=== PATIENT | female | born 1950 | race Two or more races ===

== ENCOUNTER 2017-04-26 09:59 | Emergency (ER) | payer MEDICARE ==
--- NOTE | 2017-04-26 12:15 | ER Document Report ---
ED Medical Screen (RME) - General Chief Complaint: Dizziness Stated Complaint: DIZZINESS Time Seen by Provider: 04/26/17 12:10 Mode of Arrival: Ambulatory Information source: Patient TRAVEL OUTSIDE OF THE [place] IN LAST 30 DAYS: No - HPI Onset: Other - SEVERAL DAYS Onset/Duration: Gradual Quality of pain: No pain Associated Symptoms: Dizzy/lightheaded, Headache - R. TEMPORAL, Shortness of breath - INFREQUENT, Other - DENIES VERTIGO. denies: Chest pain, Fever, Nausea , Vomiting, Weakness Exacerbated by: Other - EYES CLOSED Relieved by: Denies Similar symptoms previously: No Recently seen / treated by doctor: No - Related Data Smoking: Non-smoker Frequency of alcohol use: None Drug Abuse: None Allergies/Adverse Reactions: No Known Allergies Allergy (Verified 04/26/17 09:59) Past Medical History - General Information source: Patient - Social History Cigarette use (# per day): No Frequency of alcohol use: Rare Drug Abuse: None Lives with: Other - VISITING, FROM [place]. Family history: Reviewed & Not Pertinent - Past Medical History Cardiac Medical History: Reports: None Denies: Hx Atrial Fibrillation Pulmonary Medical History: Reports: None EENT Medical History: Reports: None Neurological Medical History: Reports: None Endocrine Medical History: Reports: None Renal/ Medical History: Reports: None Malignancy Medical History: Reports: None GI Medical History: Reports: None Musculoskeltal Medical History: Reports None Psychiatric Medical History: Reports: None Past Surgical History: Reports: Hx Adenoidectomy, Hx Tonsillectomy Review of Systems - Review of Systems Constitutional: No symptoms reported EENT: No symptoms reported Cardiovascular: No symptoms reported Respiratory: See HPI Gastrointestinal: No symptoms reported Female Genitourinary: Post menopausal Musculoskeletal: No symptoms reported Skin: No symptoms reported Neurological/Psychological: See HPI Physical Exam - Vital signs Vitals: Temp Pulse Resp BP Pulse Ox 98.2 F 72 18 133/72 H 98 04/26/17 10:28 04/26/17 10:28 04/26/17 10:28 04/26/17 10:28 04/26/17 10:28 Interpretation: Normal. No: Hypertensive, Tachycardic, Tachypneic - General General appearance: Appears well, Alert In distress: None - HEENT Head: Normocephalic Eyes: Normal Conjunctiva: Normal Ears: Normal Nasal: Normal Mouth/Lips: Normal Mucous membranes: Normal Pharynx: Normal Neck: Normal - Respiratory Respiratory status: No respiratory distress Breath sounds: Normal - Cardiovascular Rhythm: Regular Heart sounds: Normal auscultation Murmur: No - Extremities General upper extremity: Normal inspection General lower extremity: Normal inspection - Neurological Neuro grossly intact: Yes Cognition: Normal Orientation: AAOx4 - Psychological Associated symptoms: Normal affect, Normal mood - Skin Skin Temperature: Warm Skin Moisture: Dry Skin Color: Normal Skin Turgor: Elastic Course - Vital Signs Vital signs: Temp Pulse Resp BP Pulse Ox 98.2 F 72 18 133/72 H 98 04/26/17 10:28 04/26/17 10:28 04/26/17 10:28 04/26/17 10:28 04/26/17 10:28
--- NOTE | 2017-04-26 13:00 | RADIOLOGY REPORT (SQ) ---
EXAM DESCRIPTION: CT HEAD WITHOUT COMPLETED DATE/TIME: 04/26/2017 12:51 pm REASON FOR STUDY: DIZZINESS, R. TEMPORAL HEADACHE COMPARISON: None. TECHNIQUE: Axial images acquired through the brain without intravenous contrast. Images reviewed wi th bone, brain and subdural windows. Images stored on PACS. All CT scanners at this facility use dose modulation, iterative reconstruction, and/or weight based d osing when appropriate to reduce radiation dose to as low as reasonably achievable (ALARA). [facility]: Dose Right [facility]: CareDose [facility]: Dose Right [facility]: Teradose 4D [facility]: Smart IR Diagnostyx RADIATION DOSE: CT Rad equipment meets quality standard of care and radiation dose reduction techniq ues were employed. CTDIvol: 64.6 mGy. DLP: 1163 mGy-cm. mGy. LIMITATIONS: None. FINDINGS: VENTRICLES: Normal size and contour. CEREBRUM: No masses. No hemorrhage. No midline shift. No evidence for acute infarction. Normal gra y/white matter differentiation. No areas of low density in the white matter. CEREBELLUM: No masses. No hemorrhage. No alteration of density. No evidence for acute infarction. EXTRAAXIAL SPACES: No fluid collections. No masses. ORBITS AND GLOBE: No intra- or extraconal masses. Normal contour of globe without masses. CALVARIUM: No fracture. PARANASAL SINUSES: No fluid or mucosal thickening. SOFT TISSUES: No mass or hematoma. OTHER: No other significant finding. IMPRESSION: NORMAL BRAIN CT WITHOUT CONTRAST. EVIDENCE OF ACUTE STROKE: NO. COMMENT: Quality ID # [id number]: Final reports with documentation of one or more dose reduction techniques (e.g., Automated exposure control, adjustment of the mA and/or kV according to patient size, use of iterative reconstruction technique) TECHNICAL DOCUMENTATION: JOB ID: [id number] [facility]- All Rights Reserved
--- NOTE | 2017-04-26 13:01 | RADIOLOGY REPORT (SQ) ---
EXAM DESCRIPTION: CHEST PA/LAT COMPLETED DATE/TIME: 04/26/2017 12:48 pm REASON FOR STUDY: DYSPNEA COMPARISON: None. EXAM PARAMETERS: NUMBER OF VIEWS: two views TECHNIQUE: Digital Frontal and Lateral radiographic views of the chest acquired. RADIATION DOSE: NA LIMITATIONS: none FINDINGS: LUNGS AND PLEURA: No opacities, masses or pneumothorax. No pleural effusion. MEDIASTINUM AND HILAR STRUCTURES: No masses or contour abnormalities. HEART AND VASCULAR STRUCTURES: Heart normal size. No evidence for failure. BONES: No acute findings. HARDWARE: None in the chest. OTHER: No other significant finding. IMPRESSION: NO SIGNIFICANT RADIOGRAPHIC FINDING IN THE CHEST. TECHNICAL DOCUMENTATION: JOB ID: [id number] [employer]- All Rights Reserved
[2017-04-26 13:11] LABS: ABSOLUTE EOSINOPHILS # (AUTO) 0.1 10^3/uL (0.0-0.6); ABSOLUTE LYMPHOCYTES (AUTO) 2.4 10^3/uL (0.5-4.7); ABSOLUTE MONOCYTES (AUTO) 0.5 10^3/uL (0.1-1.4); ABSOLUTE NEUT (AUTO) 3.8 10^3/uL (1.7-8.2); BASOPHILS % (AUTO) 0.5 % (0-2); EOSINOPHILS % (AUTO) 1.7 % (0-6); HEMATOCRIT 45.7 % (36.0-47.0); HEMOGLOBIN 15.6 g/dL (12.0-15.5); LYMPHOCYTES % (AUTO) 35.5 % (13-45); MEAN CORPUSCULAR HEMOGLOBIN 32.1 pg (27.0-33.4); MEAN CORPUSCULAR HGB CONC 34.2 g/dL (32.0-36.0); MEAN CORPUSCULAR VOLUME 94 fl (80-97); MONOCYTES % (AUTO) 6.9 % (3-13); PLATELET COUNT 318 10^3/uL (150-450); RED BLOOD COUNT 4.86 10^6/uL (3.72-5.28); RED CELL DISTRIBUTION WIDTH 12.7 % (11.5-14.0); SEGMENTED NEUTROPHILS % (AUTO) 55.4 % (42-78); TOTAL CELLS COUNTED % (AUTO) 100 %; WHITE BLOOD COUNT 6.8 10^3/uL (4.0-10.5)
[2017-04-26 13:30] LABS: ALANINE AMINOTRANSFERASE 27 U/L (9-52); ALBUMIN 4.5 g/dL (3.5-5.0); ALKALINE PHOSPHATASE 56 U/L (38-126); ANION GAP 10 (5-19); ASPARTATE AMINO TRANSFERASE 22 U/L (14-36); BILIRUBIN,DIRECT 0.4 mg/dL (0.0-0.4); BILIRUBIN,TOTAL 0.4 mg/dL (0.2-1.3); BLOOD UREA NITROGEN 11 mg/dL (7-20); CALCIUM 9.8 mg/dL (8.4-10.2); CARBON DIOXIDE 30 mmol/L (22-30); CHLORIDE 104 mmol/L (98-107); GLUCOSE 113 mg/dL (75-110); POTASSIUM 4.3 mmol/L (3.6-5.0); SODIUM 143.7 mmol/L (137-145); TOTAL PROTEIN 7.6 g/dL (6.3-8.2)
[2017-04-26 13:55] LABS: ERYTHROCYTE SEDIMENTATION RATE 21 mm/hr (0-30)
--- NOTE | 2017-04-26 14:32 | ER Document Report ---
ED Dizziness/Weakness - General Mode of Arrival: Ambulatory Information source: Patient TRAVEL OUTSIDE OF THE [place] IN LAST 30 DAYS: No <BEN TREVIÑO - Last Filed: 04/26/17 14:43> <SHERON LOPEZ - Last Filed: 04/26/17 23:37> - General Chief Complaint: Dizziness Stated Complaint: DIZZINESS Time Seen by Provider: 04/26/17 12:10 Notes: Patient is a 66-year-old female who is visiting here from [place] (airplane) that presents to the emergency department today with complaints of dizziness for the last four days. Patient states "this is not like vertigo, things are not spinning". Patient describes her dizziness as "floating, underwater, and fuzziness". Patient states that her dizziness is exacerbated with standing up and certain positions. Patient also mentions that she feels like she "cannot get a full breath". Patient states that she has not had any syncopal episodes however she feels like she is near syncope at times. Patient mentions that she has had right shoulder and right temporal pain as well. Patient denies any head trauma. Patient denies any nasal congestion, seeing spots, feeling more off balance than baseline, weakness, blurry vision, speech, or focal neurological deficits. (BEN TREVIÑO) - Related Data Allergies/Adverse Reactions: No Known Allergies Allergy (Verified 04/26/17 09:59) Past Medical History - General Information source: Patient - Social History Smoking Status: Never Smoker Cigarette use (# per day): No Chew tobacco use (# tins/day): No Frequency of alcohol use: Rare Drug Abuse: None Lives with: Family, Other - VISITING, FROM [place]. 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 Renal/ Medical History: Denies: Hx Peritoneal Dialysis Past Surgical History: Reports: Hx Adenoidectomy, Hx Tonsillectomy <BEN TREVIÑO - Last Filed: 04/26/17 14:43> Review of Systems - Review of Systems Constitutional: No symptoms reported EENT: denies: Blurred vision, Nose congestion Cardiovascular: See HPI, Dizziness, Other - near-syncope Respiratory: No symptoms reported Gastrointestinal: No symptoms reported Genitourinary: No symptoms reported Female Genitourinary: No symptoms reported Musculoskeletal: See HPI, Other - right shoulder pain, right sided temporal pain Skin: No symptoms reported Hematologic/Lymphatic: No symptoms reported Neurological/Psychological: denies: Weakness, Headaches, Speech impairment, Numbness -: Yes All other systems reviewed and negative <BEN TREVIÑO - Last Filed: 04/26/17 14:43> Physical Exam <BEN TREVIÑO - Last Filed: 04/26/17 14:43> <SHERON LOPEZ - Last Filed: 04/26/17 23:37> - Vital signs Vitals: Temp Pulse Resp BP Pulse Ox 98.2 F 72 18 133/72 H 98 04/26/17 10:28 04/26/17 10:28 04/26/17 10:28 04/26/17 10:28 04/26/17 10:28 - Notes Notes: PHYSICAL EXAM GENERAL: Alert, interacts well. No acute distress. HEAD: Normocephalic, atraumatic. Right temporal artery tenderness with palpation. EYES: Pupils equal, round, and reactive to light. Extraocular movements intact. ENT: Oral mucosa moist, tongue midline. Nares patent, no nasal septal hematoma, TM's intact. Post nasal drainage, posterior oropharynx cobblestoning. NECK: Full range of motion. Supple. Trachea midline. LUNGS: Clear to auscultation bilaterally, no wheezes, rales, or rhonchi. No respiratory distress. HEART: Regular rate and rhythm. No murmurs, gallops, or rubs. ABDOMEN: Soft, non-tender. Non-distended. Bowel sounds present in all 4 quadrants. EXTREMITIES: Moves all 4 extremities spontaneously. No edema, radial and dorsalis pedis pulses 2/4 bilaterally. No cyanosis. NEUROLOGICAL: Alert and oriented x3. Normal speech. Cranial nerves II through XII grossly intact. Biceps and patellar DTRs diminished, 1+ bilaterally. Finger to nose test intact, heel-patino test intact. Equal fiberline supervisor strength bilaterally. PSYCH: Normal affect, normal mood. SKIN: Warm, dry, normal turgor. No rashes or lesions noted. (BEN TREVIÑO) Course - Laboratory Result Diagrams: 04/26/17 12:33 04/26/17 12:33 <BEN TREVIÑO - Last Filed: 04/26/17 14:43> - Laboratory Result Diagrams: 04/26/17 12:33 04/26/17 12:33 <SHERON LOPEZ - Last Filed: 04/26/17 23:37> - Re-evaluation Re-evalutation: 04/26/17 16:37 CBC grossly unremarkable, CMP grossly unremarkable mildly elevated glucose but this is not fasting glucose, ESR and CRP were added onto laboratory studies as she has slight right temporal artery tenderness to palpation, these are both negative which points away from temporal arteritis, CT scan of the head does not show any acute process. Chest x-ray also shows no acute process and nothing that would explain her vague description of dizziness. Patient symptoms are somewhat orthostatic in nature, she does not have any balance issues, no spinning sensation, no difficulty walking in a straight line. Patient was ambulated in triage without difficulty. Patient does not show any signs of cerebellar stroke, no indication for MRI at this time. Patient will be discharged to home. Discussed with patient that should she develop any difficulty walking she should return to the emergency department immediately. (SHERON LOPEZ) - Vital Signs Vital signs: Temp Pulse Resp BP Pulse Ox 97.9 F 72 16 134/70 H 97 04/26/17 16:48 04/26/17 16:48 04/26/17 16:48 04/26/17 16:48 04/26/17 16:48 - Laboratory Laboratory results interpreted by me: 04/26/17 04/26/17 12:33 12:33 Hgb 15.6 H Glucose 113 H - EKG Interpretation by Me Additional EKG results interpreted by me: 04/26/17 16:37 EKG shows sinus rhythm at a rate of 67, left axis deviation, normal intervals, no ST segment elevations or depressions, T-wave flattening in lead I and inversions in aVF per my interpretation. (SHERON LOPEZ) Discharge <EBN TREVIÑO - Last Filed: 04/26/17 14:43> <SHERON LOPEZ - Last Filed: 04/26/17 23:37> - Discharge Clinical Impression: Dizziness, Pre-hypertension Condition: Stable Disposition: HOME, SELF-CARE Additional Instructions: I do not know exactly what is causing your dizziness today. We did not see any signs of stroke, heart attack or dehydration. If you develop difficulty walking in a straight line, feeling off balance or have any new or concerning symptoms please return to the emergency department. Forms: Elevated Blood Pressure Referrals: SAMY LANDRY MD [ACTIVE STAFF] - Follow up in 1 week Scribe Attestation: 04/26/17 23:37 I personally performed the services described in the documentation, reviewed and edited the documentation which was dictated to the scribe in my presence, and it accurately records my words and actions. (SHERON LOPEZ) Scribe Documentation - Scribe Written by Orlando:: Orlando Edwards, 04/26/2017 [id number] acting as scribe for :: Judit <BEN TREVIÑO - Last Filed: 04/26/17 14:43>
[2017-04-26 16:50] VITALS: BP 134/70
--- NOTE | 2017-04-26 22:08 | EKG REPORT ---
SEVERITY:- BORDERLINE ECG - SINUS RHYTHM PROBABLE LEFT ATRIAL ABNORMALITY LEFT AXIS DEVIATION : Confirmed by: Mckenna Ng 26-Apr-2017 22:07:45
== END 2017-04-26 16:48 | disposition home or self-care (01) ==
LOC: ER 09:59
DX: R42 Dizziness and giddiness (principal); R03.0 Elevated blood-pressure reading, without diagnosis of hypertension; R55 Syncope and collapse; M25.511 Pain in right shoulder; R51 Headache
CPT/HCPCS: 36415; 70450; 71046; 80053; 85025; 85652; 86140; 93005; 93010; 99285